=== PATIENT | male | born 1975 | race African-American/Black ===

== ENCOUNTER 2018-09-01 15:49 | Emergency (ER) | payer MEDICAID ==
[~2018-09-01] VITALS: Ht 177.8 cm; Wt 87.0 kg
[2018-09-01] MEDS ORDERED: KETOROLAC 60MG/2ML VIAL IM ONE (18:30)
[2018-09-01 19:14] VITALS: BP 160/90
== END 2018-09-01 19:25 | disposition home or self-care (01) ==
LOC: ER 15:49
DX: S46.911A Strain of unspecified muscle, fascia and tendon at shoulder and upper arm level, right arm, initial encounter (principal); X50.0XXA Overexertion from strenuous movement or load, initial encounter; Y93.89 Activity, other specified; Y92.89 Other specified places as the place of occurrence of the external cause; R03.0 Elevated blood-pressure reading, without diagnosis of hypertension; Z72.0 Tobacco use
CPT/HCPCS: 73030; 96372; 99284; J1885

== ENCOUNTER 2025-04-27 22:50 | Emergency (ER) | payer MEDICAID ==
[~2025-04-27] VITALS: Ht 177.8 cm; Wt 87.0 kg
[2025-04-27 22:59] VITALS: TEMP 36.3; O2SAT 98
[2025-04-27 23:47] VITALS: BP 116/79; PULSE 93; RESP 14; O2SAT 96
[2025-04-27] MEDS: METOCLOPRAMIDE HCL 10MG/2ML VIAL IV ONE (23:47)
[2025-04-27 23:52] LABS: BASOPHILS % 0.3 % (0.0-2.0); EOSINOPHILS % 3.6 % (0.0-5.0); HEMOGLOBIN. 15.4 g/dL (14.0-18.0); LYMPHOCYTES % 47.4 % (20.0-50.0); MEAN CORPUSCULAR HEMOGLOBIN 30.7 pg (28.0-32.0); MEAN CORPUSCULAR VOLUME 87.9 fL (80.0-94.0); MEAN PLATELET VOLUME 6.7 fl (7.4-10.4); MONOCYTES % 12.9 % (2.0-8.0); NEUTROPHILS % 35.8 % (40.0-76.0); PLATELET 277 x1000/uL (130-400); RED BLOOD CELL COUNT 5.01 mill/uL (4.7-6.1); WHITE BLOOD COUNT 5.9 x1000/uL (4.5-11.0)
[2025-04-28 00:03] LABS: CHLORIDE 100 mEq/L (98-107); SODIUM 135 mEq/L (136-145)
[2025-04-28 00:04] LABS: CARBON DIOXIDE 27 mEq/L (21-32)
[2025-04-28 00:05] LABS: CALCIUM 9.6 mg/dL (8.7-10.4)
[2025-04-28 00:09] LABS: CREATININE 1.4 mg/dL (0.6-1.3); GLUCOSE 113 mg/dL (70-105); UREA NITROGEN BLOOD 12 mg/dL (9-23)
== END 2025-04-28 01:15 | disposition left against medical advice (07) ==
LOC: ER 22:50
DX: F10.10 Alcohol abuse, uncomplicated (principal); I10 Essential (primary) hypertension; E87.6 Hypokalemia; R79.89 Other specified abnormal findings of blood chemistry; Y90.9 Presence of alcohol in blood, level not specified
CPT/HCPCS: 99283; 96374; 80048; 85025; 36415; J2765